=== PATIENT | male | born 1940 | race Caucasian/White ===

== ENCOUNTER 2016-11-01 10:39 | Inpatient (IN) | payer MEDICARE ==
[2016-11-01 11:40] LABS: Mean Cell Volume 85.4 fl (78-100); Mean Platelet Volume 13.8 fl (6-9.5); Platelet Count 201 K/mm3 (150-450); Red Blood Count 3.98 M/mm3 (4.1-5.6); Red Cell Distribution Width 14.2 % (11.5-14.0); White Blood Count 15.6 K/mm3 (4.0-10.5)
[2016-11-01 11:47] LABS: Mean Corpuscular Hemoglobin 28.8 pg (26-32)
[2016-11-01 11:56] LABS: BAND 11 % (0.0-2.0); Metamyelocyte 1 %; Platelet Estimate NORMAL (NORMAL); Total Cells Counted 100
[2016-11-01 11:57] LABS: Toxic Granulation 2+
--- NOTE | 2016-11-01 12:07 | XRAY ---
Indication: Vomiting. Comparison: Chest exam May 23, 2013 2 views of the abdomen demonstrates mild air distended stomach, small, and large bowel loops with synchronous fluid leveling, ileus versus gastroenterocolitis. Solid organs obscured by overlying bowel gas. No free air. Osseous structures intact with osteopenia, multilevel degenerative spondylosis, and dextro scoliosis. Single PA chest demonstrates again normal heart and lungs with previous CABG surgery. Bony thorax intact again with osteopenia and degenerative changes. Impression: 1. Mild air distended stomach, small, and large bowel loops with synchronous flow leveling. Rule out ileus versus gastroenterocolitis. 2. Stable nonacute 1 view chest.
[2016-11-01] MEDS ORDERED: NovoLOG Insulin SQ PRN (12:22)
[2016-11-01] MEDS ORDERED: Zofran 4 MG/2 ML VIAL IV PRN (12:23)
[2016-11-01] MEDS ORDERED: TYLENOL 325 MG PO PRN (12:25)
[2016-11-01] MEDS ORDERED: Lactated Ringers 1,000 ML IV SCH ×2 (12:30→13:30)
[2016-11-01 12:39] LABS: ALBUMIN 2.5 g/dL (3.4-5.0); ANION GAP 13.9 MEQ/L (5-15); BILIRUBIN,TOTAL 2.3 mg/dL (0.2-1.0); Carbon Dioxide 26.5 mEq/L (21-32); Total Protein 6.1 gm/dL (6.4-8.2)
[2016-11-01 12:47] LABS: Potassium 2.9 mEq/L (3.5-5.1)
[2016-11-01] MEDS ORDERED: Flomax 0.4 MG PO SCH (13:00)
[2016-11-01 13:22] LABS: COMPLETE URINE MICROSCOPIC? YES; Collection Type CCMS; Ph 5.5 (5-6)
[2016-11-01] MEDS: SODIUM CHLORIDE 0.9% W/ 40 mEq KCL 1000ML 1,000 ML IV SCH (13:29)
[2016-11-01] MEDS: POTASSIUM CHLORIDE 20 mEq IN WATER 100ML 100 ML IV SCH (13:30)
[2016-11-01] MEDS: Vasotec 10 MG PO SCH ×2 (13:30→22:01)
[2016-11-01] MEDS: Pepcid 20 MG PO SCH ×2 (13:30→21:58)
[2016-11-01] MEDS: COREG 12.5 MG PO SCH ×2 (13:32→21:58)
[2016-11-01 15:02] LABS: Bacteria MODERATE /HPF (NEGATIVE); Epithelial Cells RARE /HPF (FEW)
[2016-11-02] MEDS: SODIUM CHLORIDE 0.9% W/ 40 mEq KCL 1000ML 1,000 ML IV SCH ×2 (04:23→17:35)
[2016-11-02 05:44] LABS: Mean Cell Volume 86.2 fl (78-100); Mean Corpuscular Hemoglobin 29.1 pg (26-32); Mean Platelet Volume 13.7 fl (6-9.5); Platelet Count 197 K/mm3 (150-450); Red Cell Distribution Width 14.6 % (11.5-14.0); White Blood Count 19.7 K/mm3 (4.0-10.5)
[2016-11-02 06:07] LABS: ANION GAP 15.2 MEQ/L (5-15); Carbon Dioxide 23.7 mEq/L (21-32); MAGNESIUM 2.2 mg/dL (1.8-2.4); Potassium 4.6 mEq/L (3.5-5.1)
--- NOTE | 2016-11-02 09:04 | PCM.NOTE ---
Date and Time: 11/02/16 0859 Subjective Assessment: Pt admitted with vomiting and diarrhea. No vomiting since 4d ago but had diarrhea once here, black stool. Still c/o abd pain, lower abd. Also c/o bloating. Objective Exam General Appearance: no apparent distress, alert Neurologic Exam: cooperative Skin Exam: normal color, warm, dry Respiratory Exam: normal breath sounds, lungs clear, No crackles/rales, No rhonchi, No wheezing Cardiovascular Exam: regular rate/rhythm, normal heart sounds Gastrointestinal/Abdomen Exam: soft, tenderness (suprapubic), distention, other (hypoactive bowel sounds), No guarding, No rebound Extremity Exam: No pedal edema, No swelling Back Exam: normal inspection OBJECTIVE DATA Vital Signs: Vital Signs - 24 hr Temp Pulse Resp BP Pulse Ox 11/02/16 07:18 97.7 F 78 20 110/59 97 11/02/16 04:00 98.4 F 78 17 112/54 95 11/01/16 23:58 97.9 F 79 18 124/64 94 L 11/01/16 19:53 97.7 F 82 17 122/60 93 L 11/01/16 16:41 99.1 F 84 20 110/58 94 L 11/01/16 11:00 97.8 F 78 18 203/84 99 Pain Assessment - Last Documented Pain Scale Used 0-10 Pain Scale Intake and Output: Intake & Output 10/30/16 10/31/16 11/01/16 11/02/16 11:59 11:59 11:59 11:59 Intake Total 3150 Output Total 390 Balance 2760 Weight 61.734 kg 61.87 kg Lab Results: Accuchecks Date 11/01/16 Date 11/01/16 Time 22:00 Time 16:38 Accucheck Value: 113 Accucheck Value: 109 Accucheck Value: 94 Lab Results-Last 24 Hours 11/01/16 11/01/16 11/01/16 Range/Units 11:07 11:30 11:30 WBC 15.6 H (4.0-10.5) K/mm3 RBC 3.98 L (4.1-5.6) M/mm3 Hgb 11.5 L (12.5-18.0) gm/dl Hct 34.0 L (42-50) % MCV 85.4 (78-100) fl MCH 28.8 (26-32) pg MCHC 33.8 (32-36) g/dl RDW 14.2 H (11.5-14.0) % Plt Count 201 (150-450) K/mm3 MPV 13.8 H (6-9.5) fl Segmented Neutrophils 71 H (36.-66.) % Band Neutrophils 11 H (0.0-2.0) % Lymphocytes (Manual) 17 L (24-44) % Metamyelocytes 1 % Differential Comment NORMAL Toxic Granulation 2+ Platelet Estimate NORMAL (NORMAL) Sodium 136 (136-145) mEq/L Potassium 2.9 L* (3.5-5.1) mEq/L Chloride 98 (98-107) mEq/L Carbon Dioxide 26.5 (21-32) mEq/L Anion Gap 13.9 (5-15) MEQ/L BUN 49 H (9-20) mg/dL Creatinine 1.36 H (0.55-1.30) mg/dl Estimated GFR 54 ML/MIN Glucose 131 H (70-110) MG/DL Calcium 8.7 (8.5-10.1) mg/dL Magnesium 2.2 (1.8-2.4) mg/dL Total Bilirubin 2.3 H (0.2-1.0) mg/dL AST 25 (15-37) U/L ALT 23 (12-78) U/L Alkaline Phosphatase 110 (46-116) U/L Serum Total Protein 6.1 L (6.4-8.2) gm/dL Albumin 2.5 L (3.4-5.0) g/dL Ur Collection Type Urine Color (YELLOW) Urine Appearance (CLEAR) Urine pH (5-6) Ur Specific [place] (1.005-1.025) Urine Protein (Negative) Urine Glucose (UA) (NEGATIVE) mg/dL Urine Ketones (NEGATIVE) Urine Nitrite (NEGATIVE) Urine Bilirubin (NEGATIVE) Urine Urobilinogen (0-1) mg/dL Urine WBC (Auto) (NEGATIVE) Urine RBC (Auto) (0-5) Zheng/ul Urine Microscopic RBC (0-2) /HPF Urine Microscopic WBC (0-5) /HPF Ur Epithelial Cells (FEW) /HPF Urine Bacteria (NEGATIVE) /HPF Specimen Received 11/01/16 11/01/16 11/02/16 Range/Units 13:09 19:58 05:40 WBC 19.7 H (4.0-10.5) K/mm3 RBC 3.40 L (4.1-5.6) M/mm3 Hgb 9.9 L (12.5-18.0) gm/dl Hct 29.3 L (42-50) % MCV 86.2 (78-100) fl MCH 29.1 (26-32) pg MCHC 33.8 (32-36) g/dl RDW 14.6 H (11.5-14.0) % Plt Count 197 (150-450) K/mm3 MPV 13.7 H (6-9.5) fl Segmented Neutrophils (36.-66.) % Band Neutrophils (0.0-2.0) % Lymphocytes (Manual) (24-44) % Metamyelocytes % Differential Comment Toxic Granulation Platelet Estimate (NORMAL) Sodium (136-145) mEq/L Potassium 3.7 (3.5-5.1) mEq/L Chloride (98-107) mEq/L Carbon Dioxide (21-32) mEq/L Anion Gap (5-15) MEQ/L BUN (9-20) mg/dL Creatinine (0.55-1.30) mg/dl Estimated GFR ML/MIN Glucose (70-110) MG/DL Calcium (8.5-10.1) mg/dL Magnesium (1.8-2.4) mg/dL Total Bilirubin (0.2-1.0) mg/dL AST (15-37) U/L ALT (12-78) U/L Alkaline Phosphatase (46-116) U/L Serum Total Protein (6.4-8.2) gm/dL Albumin (3.4-5.0) g/dL Ur Collection Type CCMS Urine Color DARK YELLOW (YELLOW) Urine Appearance CLEAR (CLEAR) Urine pH 5.5 (5-6) Ur Specific [place] 1.025 (1.005-1.025) Urine Protein 100 (Negative) Urine Glucose (UA) NEGATIVE (NEGATIVE) mg/dL Urine Ketones NEGATIVE (NEGATIVE) Urine Nitrite NEGATIVE (NEGATIVE) Urine Bilirubin SMALL (NEGATIVE) Urine Urobilinogen 0.2 (0-1) mg/dL Urine WBC (Auto) NEGATIVE (NEGATIVE) Urine RBC (Auto) LARGE (0-5) Zheng/ul Urine Microscopic RBC 0-2 (0-2) /HPF Urine Microscopic WBC 2-5 (0-5) /HPF Ur Epithelial Cells RARE (FEW) /HPF Urine Bacteria MODERATE (NEGATIVE) /HPF Specimen Received 11/01/16 1223 11/02/16 Range/Units 05:40 WBC (4.0-10.5) K/mm3 RBC (4.1-5.6) M/mm3 Hgb (12.5-18.0) gm/dl Hct (42-50) % MCV (78-100) fl MCH (26-32) pg MCHC (32-36) g/dl RDW (11.5-14.0) % Plt Count (150-450) K/mm3 MPV (6-9.5) fl Segmented Neutrophils (36.-66.) % Band Neutrophils (0.0-2.0) % Lymphocytes (Manual) (24-44) % Metamyelocytes % Differential Comment Toxic Granulation Platelet Estimate (NORMAL) Sodium 137 (136-145) mEq/L Potassium 4.6 (3.5-5.1) mEq/L Chloride 103 (98-107) mEq/L Carbon Dioxide 23.7 (21-32) mEq/L Anion Gap 15.2 H (5-15) MEQ/L BUN 52 H (9-20) mg/dL Creatinine 1.32 H (0.55-1.30) mg/dl Estimated GFR 56 ML/MIN Glucose 112 H (70-110) MG/DL Calcium 8.2 L (8.5-10.1) mg/dL Magnesium 2.2 (1.8-2.4) mg/dL Total Bilirubin (0.2-1.0) mg/dL AST (15-37) U/L ALT (12-78) U/L Alkaline Phosphatase (46-116) U/L Serum Total Protein (6.4-8.2) gm/dL Albumin (3.4-5.0) g/dL Ur Collection Type Urine Color (YELLOW) Urine Appearance (CLEAR) Urine pH (5-6) Ur Specific [place] (1.005-1.025) Urine Protein (Negative) Urine Glucose (UA) (NEGATIVE) mg/dL Urine Ketones (NEGATIVE) Urine Nitrite (NEGATIVE) Urine Bilirubin (NEGATIVE) Urine Urobilinogen (0-1) mg/dL Urine WBC (Auto) (NEGATIVE) Urine RBC (Auto) (0-5) Zheng/ul Urine Microscopic RBC (0-2) /HPF Urine Microscopic WBC (0-5) /HPF Ur Epithelial Cells (FEW) /HPF Urine Bacteria (NEGATIVE) /HPF Specimen Received Radiology Exams: Radiology Procedures Category Date Time Status ABDOMEN AND PELVIS W CONTRAST [CT] Routine Exams 11/02/16 08:58 Ordered OBSTR/ACUTE ABDOMEN SERIES Routine Exams 11/01/16 11:09 Completed Assessment/Plan (1) Diarrhea Current Visit: Yes Status: Acute Assessment & Plan: one episode here, melanotic. Code(s): R19.7 - DIARRHEA, UNSPECIFIED (2) Abdominal pain Current Visit: Yes Status: Acute Assessment & Plan: Still having pain despite being treated here with IV fluids. Not able to tolerate po. Abd film with air fluid levels. will go ahead and check CT abd/ pelvis today; he is quite distended and tender. Code(s): R10.9 - UNSPECIFIED ABDOMINAL PAIN (3) Melena Current Visit: Yes Status: Acute Assessment & Plan: check hemoccult; he does have increased anemia. EGD last year + gastritis. Colonoscopy was neg - will get both on the chart. Code(s): K92.1 - MELENA (4) Anemia Current Visit: Yes Status: Acute Qualifiers: Anemia type: iron deficiency Iron deficiency anemia type: unspecified iron deficiency Qualified Code(s): D50.9 - Iron deficiency anemia, unspecified Assessment & Plan: Hgb from 11 to 9.9, may be somewhat dilutional but suspect some bleeding based on report of melanotic stool. Code(s): D64.9 - ANEMIA, UNSPECIFIED (5) Delirium superimposed on dementia Current Visit: Yes Status: Acute Assessment & Plan: has been seeing things, not sleeping well - will try some haldol tonight for some sleep in a low dose. otherwise family to re-orient, stay with pt if possible. Code(s): F05 - DELIRIUM DUE TO KNOWN PHYSIOLOGICAL CONDITION
[2016-11-02] MEDS: Vasotec 10 MG PO SCH ×2 (09:44→21:30)
[2016-11-02] MEDS: Pepcid 20 MG PO SCH (09:44)
[2016-11-02] MEDS: COREG 12.5 MG PO SCH ×2 (09:44→21:30)
--- NOTE | 2016-11-02 12:52 | XRAY ---
Indication: Abdominal pain and diarrhea. Multiple contiguous axial images obtained through the abdomen and pelvis using 80 cc Isovue 370 contrast. Oral contrast also given. Comparison: None Lung bases demonstrates bibasilar atelectasis/scarring and borderline cardiomegaly. Stomach is markedly distended with enteric contrast. The small and large bowel loops are also abnormally distended with fluid and enteric contrast with synchronous fluid leveling throughout. Transverse colon distended up to 6 cm. Findings favor adynamic ileus versus gastroenterocolitis. Tiny bilateral paracolic fluid. No free air. Normal appendix. Scattered hepatic/splenic calcified granulomas, tiny gallstones/gravel, left adrenal hypertrophy, and 3.7 cm left mid renal exophytic cyst. Remaining liver, pancreas, spleen, right adrenal gland, kidneys, ureters, and bladder appear unremarkable. Moderate aortoiliac calcifications. No AAA or pathologic retroperitoneal lymphadenopathy. Osseous structures intact with degenerative changes throughout the spine. Impression: 1. Diffuse fluid and contrast distended stomach, small, and large bowel loops with synchronous fluid leveling. Rule out adynamic ileus versus gastroenterocolitis. Tiny bilateral paracolic fluid presumed reactive. 2. Incidental tiny gallstones/gravel, left adrenal hypertrophy, left renal exophytic cyst, borderline cardiomegaly, and evidence for old granulomatous disease. CT DI 17.87
[2016-11-02] MEDS ORDERED: MORPHINE SULFATE 4 MG INJ IV PRN (15:33)
[2016-11-02] MEDS ORDERED: Ativan 2 MG/1 ML VIAL IV PRN (18:18)
[2016-11-02] MEDS ORDERED: PROTONIX 40 MG IV IV SCH (18:30)
[2016-11-02] MEDS ORDERED: Risperdal 1 MG PO SCH (22:00)
[2016-11-02] MEDS ORDERED: Flomax 0.4 MG PO SCH (22:00)
[2016-11-02 23:56] LABS: A-aADO2 485; ALLEN TEST OK? NO; ARTERIAL BLD GAS O2 SATURATION 98.2 % (95-100); ARTERIAL BLOOD GAS BASE EXCESS -15.6 (-2.0-2.0); ARTERIAL BLOOD GAS FIO2 100 %; ARTERIAL BLOOD GAS PO2 201 mmHg (75-100); ARTERIAL BLOOD GAS pH 7.26 (7.35-7.45)
[2016-11-03] MEDS ORDERED: Zosyn 3.375GM/100 Ml D5W 100 ML IV SCH
[2016-11-03 00:21] LABS: Mean Corpuscular Hemoglobin 29.3 pg (26-32); Mean Platelet Volume 13.7 fl (6-9.5); Platelet Count 174 K/mm3 (150-450); Red Cell Distribution Width 15.5 % (11.5-14.0)
[2016-11-03 00:27] LABS: White Blood Count 25.2 K/mm3 (4.0-10.5)
[2016-11-03 00:28] LABS: ANION GAP 24.3 MEQ/L (5-15)
[2016-11-03 00:35] LABS: MAGNESIUM 2.6 mg/dL (1.8-2.4); TROPONIN 0.028 ng/ml (0.000-0.056)
[2016-11-03 00:49] LABS: Carbon Dioxide 11.6 mEq/L (21-32)
[2016-11-03] MEDS ORDERED: Versed 50 MG/ 10 Ml MDV ONE (00:59)
[2016-11-03] MEDS ORDERED: Sodium Chloride 0.9% 250 ML 250 ML IV ONE (00:59)
[2016-11-03] MEDS ORDERED: FENTANYL 500 MCG/10 ML VIAL IV ONE (01:04)
[2016-11-03] MEDS ORDERED: Sodium Chloride 0.9% 150 ML 150 ML IV ONE (01:13)
[2016-11-03 02:14] LABS: BAND 5 % (0.0-2.0); Eosinophil 1 % (0.00-3.0); Platelet Estimate NORMAL (NORMAL); Total Cells Counted 100
[2016-11-03 02:15] LABS: ANISOCYTOSIS 1+; Burr Cells 1+; Toxic Granulation 2+
[2016-11-03] MEDS ORDERED: Zosyn 3.375GM/100 Ml D5W 100 ML IV ONE (02:43)
[2016-11-03 04:30] LABS: A-aADO2 485; ARTERIAL BLOOD GAS BASE EXCESS -14.7 (-2.0-2.0); ARTERIAL BLOOD GAS FIO2 80 %; ARTERIAL BLOOD GAS PO2 57 mmHg (75-100); ARTERIAL BLOOD GAS pH 7.27 (7.35-7.45)
[2016-11-03 04:31] LABS: ALLEN TEST OK? NO; ARTERIAL BLD GAS TIDAL VOLUME 650 cc
[2016-11-03] MEDS ORDERED: Sodium Chloride 0.9% 1000 ML 1,000 ML ONE (06:26)
[2016-11-03] MEDS: Sodium Chloride 0.9% 1000 ML 1,000 ML IV SCH ×2 (06:32→11:21)
[2016-11-03] MEDS ORDERED: VERSED 5 MG/5 ML IV PRN (07:33)
[2016-11-03] MEDS ORDERED: Versed 50 MG/ 10 Ml MDV*** 50 MG in Sodium Chloride 0.9% 250 ML 240 ML IV SCH (07:45)
[2016-11-03] MEDS ORDERED: SUBLIMAZE 1000 Mcg/ 20 Ml*** 1,500 MCG in Sodium Chloride 0.9% 150 ML 120 ML IV SCH (07:45)
[2016-11-03] MEDS ORDERED: Dopamine 400 MG/D5W 250ML PREMIX 250 ML IV SCH (08:00)
[2016-11-03] MEDS: Zosyn 3.375GM/100 Ml D5W 100 ML IV SCH ×2 (08:16→14:10)
[2016-11-03 09:04] LABS: Mean Cell Volume 86.6 fl (78-100); Mean Corpuscular Hemoglobin 29.6 pg (26-32); Mean Platelet Volume 13.7 fl (6-9.5); Platelet Count 162 K/mm3 (150-450); Red Blood Count 4.26 M/mm3 (4.1-5.6); Red Cell Distribution Width 15.7 % (11.5-14.0)
[2016-11-03 09:17] LABS: White Blood Count 31.1 K/mm3 (4.0-10.5)
[2016-11-03 09:21] LABS: BAND 25 % (0.0-2.0); Metamyelocyte 4 %; Total Cells Counted 100
--- NOTE | 2016-11-03 09:21 | PCM.NOTE ---
Date and Time: 11/03/16916 Subjective Assessment: patient apparently coded last night, currently maximum rate on dopamine and remains hypotensive. bp 60's/40's, wbc climbing. patient is on ventilator. source of infection is not obvious, other than abdominal distension no obvious etiology. Objective Exam General Appearance: other (patient unresponsive and on ventilator) Respiratory Exam: normal breath sounds Cardiovascular Exam: regular rate/rhythm, normal heart sounds Gastrointestinal/Abdomen Exam: distention Extremity Exam: normal inspection, normal range of motion OBJECTIVE DATA Vital Signs: Vital Signs - 24 hr Temp Pulse Resp BP Pulse Ox 11/03/16 08:45 82 18 65/42 93 L 11/03/16 08:30 84 18 65/43 91 L 11/03/16 08:15 84 18 66/43 97 11/03/16 08:00 95.2 F 84 18 65/42 96 11/03/16 07:45 85 18 64/42 97 11/03/16 07:30 88 18 63/44 99 11/03/16 07:15 88 18 69/48 100 11/03/16 07:00 88 18 74/53 100 11/03/16 04:00 85 11/03/16 03:00 93.4 F 84 23 82/51 11/03/16 00:00 93.1 F 11/02/16 23:00 72 18 78/42 81 L 11/02/16 19:00 98.1 F 67 28 H 98/60 95 11/02/16 15:17 98 F 77 22 91/66 93 L 11/02/16 12:40 97.7 F 83 18 113/58 94 L Oxygen-Last 24 hours O2 Percentage 80% O2 Percentage 80% O2 Percentage 80% O2 Percentage 80% O2 Percentage 80% O2 Percentage 80% O2 Percentage 80% O2 Percentage 80% O2 Percentage 100% Pain Assessment - Last Documented Pain Intensity 10 Pain Scale Used [facility] Intake and Output: Intake & Output 10/31/16 11/01/16 11/02/16 11/03/16 11:59 11:59 11:59 11:59 Intake Total 3150 4844 Output Total 390 700 Balance 2760 4144 Weight 61.734 kg 61.87 kg 51 kg Lab Results: Accuchecks Date 11/03/16 Time 08:13 Accucheck Value: 68 Accucheck Value: 135 Accucheck Value: 171 Lab Results-Last 24 Hours 11/02/16 11/02/16 11/02/16 Range/Units 09:10 09:10 19:00 WBC (4.0-10.5) K/mm3 RBC (4.1-5.6) M/mm3 Hgb (12.5-18.0) gm/dl Hct (42-50) % MCV (78-100) fl MCH (26-32) pg MCHC (32-36) g/dl RDW (11.5-14.0) % Plt Count (150-450) K/mm3 MPV (6-9.5) fl Segmented Neutrophils (36.-66.) % Band Neutrophils (0.0-2.0) % Lymphocytes (Manual) (24-44) % Monocytes (Manual) (0.0-12.0) % Eosinophils (Manual) (0.00-3.0) % Differential Comment Toxic Granulation Platelet Estimate (NORMAL) Anisocytosis Ladarius Cells Puncture Site pCO2 (35-45) mmHg pO2 (75-100) mmHg Base Excess (-2.0-2.0) O2 Saturation (94-100) g/dF ABG pH (7.35-7.45) ABG HCO3 (22-28) ABG O2 Sat (Measured) (95-100) % Kimani Test A-a Gradient a/A Ratio Hemoglobin Carboxyhemoglobin (0.0-6.9) % THgb Methemoglobin (1.4-1.5) % Potassium (3.5-5.1) Temperature C POC O2 Flow Rate % Vent Mode Vent Rate /MIN Tidal Volume cc PEEP cmH2O Pressure Support Sodium (136-145) mEq/L Chloride (98-107) mEq/L Carbon Dioxide (21-32) mEq/L Anion Gap (5-15) MEQ/L BUN (9-20) mg/dL Creatinine (0.55-1.30) mg/dl Estimated GFR ML/MIN Glucose (70-110) MG/DL Lactic Acid (0.4-2.0) Calcium (8.5-10.1) mg/dL Magnesium (1.8-2.4) mg/dL Ammonia 13 (11-32) MMOL/l Troponin I (0.000-0.056) ng/ml Stool Occult Blood POSITIVE (Negative) Stl C. diff Tox B Gene NEGATIVE (NEGATIVE) C.difficile 027-NAP1-B1 PRESUMPTIVE NEGATIVE (NEGATIVE) ABO Group Rh Factor Antibody Screen (NEGATIVE) Crossmatch (COMPATIBLE) 11/02/16 11/02/16 11/03/16 Range/Units 23:54 23:55 00:05 WBC 25.2 H* (4.0-10.5) K/mm3 RBC 2.90 L (4.1-5.6) M/mm3 Hgb 8.5 L (12.5-18.0) gm/dl Hct 26.1 L (42-50) % MCV 90.0 (78-100) fl MCH 29.3 (26-32) pg MCHC 32.6 (32-36) g/dl RDW 15.5 H (11.5-14.0) % Plt Count 174 (150-450) K/mm3 MPV 13.7 H (6-9.5) fl Segmented Neutrophils 86 H (36.-66.) % Band Neutrophils 5 H (0.0-2.0) % Lymphocytes (Manual) 2 L (24-44) % Monocytes (Manual) 6 (0.0-12.0) % Eosinophils (Manual) 1 (0.00-3.0) % Differential Comment ABNORMAL Toxic Granulation 2+ Platelet Estimate NORMAL (NORMAL) Anisocytosis 1+ Warner Cells 1+ Puncture Site LEFT BRACHIAL pCO2 22 L (35-45) mmHg pO2 201 H* (75-100) mmHg Base Excess -15.6 L (-2.0-2.0) O2 Saturation 95.5 (94-100) g/dF ABG pH 7.26 L (7.35-7.45) ABG HCO3 9.9 L* (22-28) ABG O2 Sat (Measured) 98.2 (95-100) % Kimani Test NO A-a Gradient 485 a/A Ratio 0.29 Hemoglobin 8.7 Carboxyhemoglobin 2.1 (0.0-6.9) % THgb Methemoglobin 0.6 L (1.4-1.5) % Potassium 5.0 (3.5-5.1) Temperature 37.0 C POC O2 Flow Rate 100 % Vent Mode Vent Rate /MIN Tidal Volume cc PEEP cmH2O Pressure Support Sodium (136-145) mEq/L Chloride (98-107) mEq/L Carbon Dioxide (21-32) mEq/L Anion Gap (5-15) MEQ/L BUN (9-20) mg/dL Creatinine (0.55-1.30) mg/dl Estimated GFR ML/MIN Glucose (70-110) MG/DL Lactic Acid 6.7 H (0.4-2.0) Calcium (8.5-10.1) mg/dL Magnesium (1.8-2.4) mg/dL Ammonia (11-32) MMOL/l Troponin I (0.000-0.056) ng/ml Stool Occult Blood (Negative) Stl C. diff Tox B Gene (NEGATIVE) C.difficile 027-NAP1-B1 (NEGATIVE) ABO Group Rh Factor Antibody Screen (NEGATIVE) Crossmatch (COMPATIBLE) 11/03/16 11/03/16 11/03/16 Range/Units 00:05 00:05 00:05 WBC (4.0-10.5) K/mm3 RBC (4.1-5.6) M/mm3 Hgb (12.5-18.0) gm/dl Hct (42-50) % MCV (78-100) fl MCH (26-32) pg MCHC (32-36) g/dl RDW (11.5-14.0) % Plt Count (150-450) K/mm3 MPV (6-9.5) fl Segmented Neutrophils (36.-66.) % Band Neutrophils (0.0-2.0) % Lymphocytes (Manual) (24-44) % Monocytes (Manual) (0.0-12.0) % Eosinophils (Manual) (0.00-3.0) % Differential Comment Toxic Granulation Platelet Estimate (NORMAL) Anisocytosis Ladaruis Cells Puncture Site pCO2 (35-45) mmHg pO2 (75-100) mmHg Base Excess (-2.0-2.0) O2 Saturation (94-100) g/dF ABG pH (7.35-7.45) ABG HCO3 (22-28) ABG O2 Sat (Measured) (95-100) % Kimani Test A-a Gradient a/A Ratio Hemoglobin Carboxyhemoglobin (0.0-6.9) % THgb Methemoglobin (1.4-1.5) % Potassium 5.0 (3.5-5.1) Temperature C POC O2 Flow Rate % Vent Mode Vent Rate /MIN Tidal Volume cc PEEP cmH2O Pressure Support Sodium 136 (136-145) mEq/L Chloride 105 (98-107) mEq/L Carbon Dioxide 11.6 L* (21-32) mEq/L Anion Gap 24.3 H (5-15) MEQ/L BUN 67 H (9-20) mg/dL Creatinine 2.24 H (0.55-1.30) mg/dl Estimated GFR 31 ML/MIN Glucose 115 H (70-110) MG/DL Lactic Acid (0.4-2.0) Calcium 7.1 L (8.5-10.1) mg/dL Magnesium 2.6 H (1.8-2.4) mg/dL Ammonia (11-32) MMOL/l Troponin I 0.028 (0.000-0.056) ng/ml Stool Occult Blood (Negative) Stl C. diff Tox B Gene (NEGATIVE) C.difficile 027-NAP1-B1 (NEGATIVE) ABO Group O Rh Factor NEGATIVE Antibody Screen NEGATIVE (NEGATIVE) Crossmatch COMPATIBLE (COMPATIBLE) 11/03/16 11/03/16 11/03/16 Range/Units 00:05 00:05 00:05 WBC (4.0-10.5) K/mm3 RBC (4.1-5.6) M/mm3 Hgb (12.5-18.0) gm/dl Hct (42-50) % MCV (78-100) fl MCH (26-32) pg MCHC (32-36) g/dl RDW (11.5-14.0) % Plt Count (150-450) K/mm3 MPV (6-9.5) fl Segmented Neutrophils (36.-66.) % Band Neutrophils (0.0-2.0) % Lymphocytes (Manual) (24-44) % Monocytes (Manual) (0.0-12.0) % Eosinophils (Manual) (0.00-3.0) % Differential Comment Toxic Granulation Platelet Estimate (NORMAL) Anisocytosis Warner Cells Puncture Site pCO2 (35-45) mmHg pO2 (75-100) mmHg Base Excess (-2.0-2.0) O2 Saturation (94-100) g/dF ABG pH (7.35-7.45) ABG HCO3 (22-28) ABG O2 Sat (Measured) (95-100) % Kimani Test A-a Gradient a/A Ratio Hemoglobin Carboxyhemoglobin (0.0-6.9) % THgb Methemoglobin (1.4-1.5) % Potassium (3.5-5.1) Temperature C POC O2 Flow Rate % Vent Mode Vent Rate /MIN Tidal Volume cc PEEP cmH2O Pressure Support Sodium (136-145) mEq/L Chloride (98-107) mEq/L Carbon Dioxide (21-32) mEq/L Anion Gap (5-15) MEQ/L BUN (9-20) mg/dL Creatinine (0.55-1.30) mg/dl Estimated GFR ML/MIN Glucose (70-110) MG/DL Lactic Acid (0.4-2.0) Calcium (8.5-10.1) mg/dL Magnesium (1.8-2.4) mg/dL Ammonia (11-32) MMOL/l Troponin I (0.000-0.056) ng/ml Stool Occult Blood (Negative) Stl C. diff Tox B Gene (NEGATIVE) C.difficile 027-NAP1-B1 (NEGATIVE) ABO Group Rh Factor Antibody Screen (NEGATIVE) Crossmatch COMPATIBLE COMPATIBLE COMPATIBLE (COMPATIBLE) 11/03/16 11/03/16 Range/Units 04:29 04:29 WBC (4.0-10.5) K/mm3 RBC (4.1-5.6) M/mm3 Hgb (12.5-18.0) gm/dl Hct (42-50) % MCV (78-100) fl MCH (26-32) pg MCHC (32-36) g/dl RDW (11.5-14.0) % Plt Count (150-450) K/mm3 MPV (6-9.5) fl Segmented Neutrophils (36.-66.) % Band Neutrophils (0.0-2.0) % Lymphocytes (Manual) (24-44) % Monocytes (Manual) (0.0-12.0) % Eosinophils (Manual) (0.00-3.0) % Differential Comment Toxic Granulation Platelet Estimate (NORMAL) Anisocytosis Warner Cells Puncture Site LEFT BRACHIAL pCO2 23 L (35-45) mmHg pO2 57 L (75-100) mmHg Base Excess -14.7 L (-2.0-2.0) O2 Saturation 88.3 L (94-100) g/dF ABG pH 7.27 L (7.35-7.45) ABG HCO3 10.6 L* (22-28) ABG O2 Sat (Measured) 89.0 L (95-100) % Kimani Test NO A-a Gradient 485 a/A Ratio 0.11 Hemoglobin 9.9 Carboxyhemoglobin 0.5 (0.0-6.9) % THgb Methemoglobin 0.3 L (1.4-1.5) % Potassium 3.9 (3.5-5.1) Temperature 37.0 C POC O2 Flow Rate 80 % Vent Mode AC Vent Rate 18 /MIN Tidal Volume 650 cc PEEP 5 cmH2O Pressure Support 50 Sodium (136-145) mEq/L Chloride (98-107) mEq/L Carbon Dioxide (21-32) mEq/L Anion Gap (5-15) MEQ/L BUN (9-20) mg/dL Creatinine (0.55-1.30) mg/dl Estimated GFR ML/MIN Glucose (70-110) MG/DL Lactic Acid 5.0 H (0.4-2.0) Calcium (8.5-10.1) mg/dL Magnesium (1.8-2.4) mg/dL Ammonia (11-32) MMOL/l Troponin I (0.000-0.056) ng/ml Stool Occult Blood (Negative) Stl C. diff Tox B Gene (NEGATIVE) C.difficile 027-NAP1-B1 (NEGATIVE) ABO Group Rh Factor Antibody Screen (NEGATIVE) Crossmatch (COMPATIBLE) Radiology Exams: Radiology Procedures Category Date Time Status ABDOMEN AND PELVIS W CONTRAST [CT] Routine Exams 11/02/16 08:58 Completed CHEST 1 VIEW (PORTABLE) Stat Exams 11/02/16 23:22 Taken OBSTR/ACUTE ABDOMEN SERIES Routine Exams 11/01/16 11:09 Completed Multi-Disciplinary Progress Notes: Multi-Disciplinary Progress Notes 11/03/16 03:07 Respiratory Note by James Sanchez WAS CALLED ON THIS PT. HE WAS NOT A RESP PT PRIOR TO [place]. DR. LEIVA INTUBATED W/ 8.0 ETT AND WE BAGGED PT TILL WE WERE ABLE TO TRANSFER TO ICU. SET PT UP ON 840 VENT W/ SETTINGS OF 700, R 14, 5 PEEP, 100%. ABG WAS DRAWN AND INFO WAS 7.26, 22, 201, 9.9, -15.6 AND LACTIC WAS 6.7. I DECREASED O2 TO 80%. I CALLED DR. MA W/ INFO AND SHE REQUESTED THAT WE CONSULT DR. YAN ON PT. DR. YAN REQUESTED WE INCREASE RATE TO 18. REPEAT ABG IN AM AND HE WILL SEE PT IN THE AM. Initialized on 11/03/16 03:07 - END OF NOTE 11/02/16 15:24 Respiratory Note by Martine Martínez Called to patient's room to check patient out for shortness of breath. O2 sat 93% on room air Pt's RR 24 Breath sounds clear bilaterally. Initialized on 11/02/16 15:24 - END OF NOTE Assessment/Plan (1) Severe sepsis Current Visit: Yes Status: Acute Assessment & Plan: appears to have a likely abdominal process, ?cholecystitis vs cholangitis, uncertain etiology. no obvious infiltrate on chest xray and u/a fairly unremarkable on admission. patient complained of diarrhea and vomiting, +stool for occult blood. have consulted with Dr Yan who recommends transfer to [facility], I had a long discussion with the patient's and 2 daughters and they will consider code status, transfer vs comfort measures as patient has grim prognosis at this point. will initiate levophed drip due to persistent hypotension Code(s): A41.9 - SEPSIS, UNSPECIFIED ORGANISM; R65.20 - SEVERE SEPSIS WITHOUT SEPTIC SHOCK (2) Hypotension Current Visit: Yes Status: Acute Code(s): I95.9 - HYPOTENSION, UNSPECIFIED
--- NOTE | 2016-11-03 09:26 | XRAY ---
Indication: Status post code. Postintubation. Comparison: One day earlier. Portable chest underinflated with now subtle bibasilar infiltrates versus atelectasis. No pneumothorax. Heart is not enlarged. New endotracheal tube tip 5 cm above the eliceo. Also new NG tube terminates mid thoracic esophagus. Impression: 1. Status post intubation with endotracheal tube tip 5 cm above the eliceo. Also new NG tube tip terminates mid thoracic esophagus and should be further advanced into the stomach. 2. New underinflated lungs with bibasilar infiltrates versus atelectasis. Comment: Preliminary interpretation was made by [facility]. No critical discrepancy.
[2016-11-03 09:31] LABS: ALBUMIN 1.6 g/dL (3.4-5.0); ANION GAP 20.6 MEQ/L (5-15); BILIRUBIN,TOTAL 6.8 mg/dL (0.2-1.0); Potassium 4.2 mEq/L (3.5-5.1); Total Protein 4.3 gm/dL (6.4-8.2)
[2016-11-03 09:32] LABS: Platelet Estimate NORMAL (NORMAL)
[2016-11-03] MEDS: LEVOPHED 4 MG/4 ML 4,000 MCG in Dextrose 5%/Water IV Soln. 500 ML 500 ML IV PRN ×2 (09:36→13:27)
[2016-11-03 10:14] LABS: Carbon Dioxide 12.9 mEq/L (21-32)
[2016-11-03] MEDS ORDERED: DOBUTREX 500 MG/D5W 250 ML 250 ML IV PRN (10:52)
[2016-11-03] MEDS ORDERED: FLAGYL 500 MG IVPB 100 ML IV SCH ×2 (12:00)
--- NOTE | 2016-11-03 14:47 | CONS ---
CONSULT DATE: 11/03/2016 REASON FOR CONSULTATION: Respiratory failure, sepsis, septic shock. HISTORY: The history is obtained from reviewing current record and discussion with family. Dann Goode is a 75 year-old male with history of coronary artery disease having undergone coronary artery bypass graft surgery about three years ago, who was admitted by Dr. Omer with abdominal complaints of nausea, diarrhea, vomiting that started a few days prior to admission. The patient was initially admitted with stable vital signs to the medical floor. However, he decompensated last night and subsequent arterial blood gas showed hypercapnic respiratory failure leading to intubation. The patient was also hypotensive and I was contacted at around 0230 hours in the morning. I advised that the patient be treated with IV fluids followed by changing drip from dopamine to Dobutamine. The patient has been treated in ICU since. This morning I also discussed with Dr. Omer. The patient had addition of IV Levophed as well as Dobutamine. Despite this his blood pressure remains extremely marginal at round 70 systolic. The patient has been complete aneuric as well. He was also started on Versed and Fentanyl for comfort. At the time of my evaluation the patient is poorly responsive to verbal and tactile stimuli, afebrile. Heart rate 94, blood pressure 76/48 mm of Mercury. PAST MEDICAL HISTORY: Positive for coronary artery disease having undergone coronary artery bypass graft surgery about three years ago. History of gastroesophageal reflux. GI bleed after open heart surgery. History of anemia, gout, diabetes mellitus, hypertension, and prostatic enlargement. PAST SURGICAL HISTORY: Coronary artery bypass graft surgery as above. PERSONAL AND SOCIAL HISTORY: The patient is and lives with family. Other social history is not available. MEDICATIONS: At home he was on aspirin, Atorvastatin, carvedilol, Enalapril, Famotidine, glipizide, Tamsulosin with probiotic. ALLERGIES: SEROQUEL, SULFA. PHYSICAL EXAMINATION: This is an elderly male who appears intubated. Vital signs as above. HEENT: Normocephalic. Pupils are reactive. ET tube and NG tube are in place. CVS: First and second heart sounds are normal, regular, rhythmic. RESPIRATORY: Shows diminished breath sounds. Crackles are heard. ABDOMEN: Mildly distended with absent bowel sounds. EXTREMITIES: No significant edema. Perez catheter is in place. LABORATORY DATA AND TESTS: Cultures are pending. White blood cell count 31.1, hemoglobin 12.6, hematocrit 37, PLT 162,000. Sodium 135, potassium 4.2, chloride 106, bicarb 13, glucose 117, BUN 32, creatinine 2.5. AST 19,500. AST 4389. Alkaline phosphatase 289. Radiologist tests including CT was reviewed. ASSESSMENT: This is a 75 year old male admitted with: 1) Acute respiratory failure. 2) Severe sepsis with septic shock presumed source clearly is abdominal with possible gram negative bacilli. 3) Multi-organ failure with acute renal failure secondary to septic shock. 4) Coronary artery disease status post coronary artery bypass graft. 5) Shocked liver. 6) Comorbid as listed above. RECOMMENDATIONS: I had a long discussion with the patient's and two daughters. I explained to them that the patient has been maxed out on current support and certainly if additional treatment is desired, looking at starting continuous renal replacement therapy. In addition, surgical consultation would be valuable particularly to exclude necrotic intestines which may require surgical intervention once hemodynamic stability can be achieved. They do fully understand that the patient's current condition is critical and prognosis remains guarded to poor. In addition, a possibility of complications even after hemodynamic recovery including encephalopathy, prolonged need for dialysis, as well as respiratory support were discussed as well. Respecting family wishes they have currently chosen to transfer the patient under my care to [facility] and will arrange for the same. Continue current pressors. The patient's family fully understands the patient's transport is risky and it is possible that the patient may sustained cardiac arrest in route as well. They want to transfer. They fully understand the risks involved.
[2016-11-03 15:42] VITALS: BP 63/47; PULSE 94; O2SAT 18
[2016-11-03 19:52] LABS: Giardia Antigen EIA Negative (Negative)
== END 2016-11-03 15:40 | disposition short-term general hospital (02) | DRG 640 ==
LOC: OBSVTOIN 10:50 → INTOOBSV 10:50 → MED SURG 10:50 → OBSVTOIN 11-02 22:10 → ICU 11-02 23:50
PROVIDERS: ADMIT Family Medicine; ATTEND Family Medicine
PROC: 5A1935Z Respiratory Ventilation, Less than 24 Consecutive Hours (ICD-10-PCS; principal; 2016-11-03)
PROC: 0BH18EZ Insertion of Endotracheal Airway into Trachea, Via Natural or Artificial Opening Endoscopic (ICD-10-PCS; 2016-11-03)
DX: E86.0 Dehydration (principal); A41.9 Sepsis, unspecified organism; J96.00 Acute respiratory failure, unspecified whether with hypoxia or hypercapnia; K72.00 Acute and subacute hepatic failure without coma; R65.21 Severe sepsis with septic shock; N17.9 Acute kidney failure, unspecified; K92.1 Melena; F05 Delirium due to known physiological condition; I25.810 Atherosclerosis of coronary artery bypass graft(s) without angina pectoris; E11.9 Type 2 diabetes mellitus without complications; I95.9 Hypotension, unspecified; M10.9 Gout, unspecified; I10 Essential (primary) hypertension; N40.0 Benign prostatic hyperplasia without lower urinary tract symptoms; K21.9 Gastro-esophageal reflux disease without esophagitis; R10.9 Unspecified abdominal pain; D50.9 Iron deficiency anemia, unspecified; Z79.899 Other long term (current) drug therapy
CPT/HCPCS: 36415; 36430; 36600; 71010; 74022; 74177; 80048; 80053; 81000; 82140; 82272; 82375; 82803; 82962; 83605; 83735; 84132; 84484; 85025; 86850; 86900; 86901; 86922; 87040; 87045; 87046; 87077; 87086; 87177; 87209; 87335; 87493; 92950; 93005; 93268; 94002; 94003; 94770; 94799; G0378; J1265; J2060; J2250; J2543; J3010; J3480; P9016; P9603